=== PATIENT | female | born 1945 | race Caucasian/White ===

== ENCOUNTER 2017-11-29 15:28 | Inpatient (IN) | payer MEDICARE, MEDICAID ==
[~2017-11-29 15:28] MED LIST: ETOMIDATE 20 MG INJ; SUCCINYLCHOLINE CHLORIDE 100 MG/5 ML SYG IV
[2017-11-29] MEDS: IPRATROPIUM (NEB) 0.5 MG/2.5 ML AMP INH (16:05)
[2017-11-29] MEDS: ALBUTEROL 0.5% (NEB) 2.5 MG/0.5 ML AMP INH (16:05)
[2017-11-29 16:28] LABS: AADO2 Arterial 416.1 mmHg (7.0-24.0); Allen Test ACCEPTAB; Arterial Base Excess -3.5 mmol/L (-3.0-3); Arterial COHb 2.1 % (0.0-3.0); Arterial Fraction of Oxyhgb 96.7 % (93.0-99.0); Arterial HCO3 28.6 mmol/L (22.0-26.0); Arterial MetHb 0.2 % (0.0-1.5); Arterial Total Hemglobin 14.1 g/dl (12.0-18.0); Arterial pCO2 92.6 mmhg (35-45); MODE MASK - NRB; Site Right Radial
[2017-11-29 16:34] LABS: ADD MAN DIFF? NO
[2017-11-29 16:38] LABS: WHITE BLOOD COUNT 13.5 10^3/ul (4.8-10.8)
[2017-11-29 16:38] LABS: BASOPHILS % 0.3 % (0.0-2.0); HEMOGLOBIN 12.8 g/dl (12.0-16.0); LYMPHOCYTES # 0.9 10^3/ul (0.8-2.9); LYMPHOCYTES % 6.4 % (15.0-51.0); MEAN CORPUSCULAR HGB CONC 30.5 g/dl (32.0-37.0); MEAN CORPUSCULAR VOLUME 101.7 fl (82.0-101.0); MEAN PLATELET VOLUME 11.2 fl (7.4-10.4); MONOCYTE # 0.4 10^3/ul (0.3-0.9); MONOCYTES % 3.3 % (0.0-11.0); NEUTROPHIL # 11.9 10^3/ul (1.6-7.5); NEUTROPHILS % 87.9 % (39.0-77.0); NUCLEATED RED BLOOD CELLS # 0.2 10^3/ul (0.0-0.0); NUCLEATED RED BLOOD CELLS% 1.3 /100WBC (0.0-0.0); PLATELET COUNT 235 10^3/UL (140-415); RED BLOOD COUNT 4.13 10^6/ul (4.20-5.40); RED CELL DISTRIBUTION WIDTH 16.6 % (11.5-14.5)
[2017-11-29] MEDS ORDERED: PROPOFOL 100 ML IV (16:45)
[2017-11-29] MEDS ORDERED: SUCCINYLCHOLINE CHLORIDE 100 MG/5 ML SYG IV (16:45)
[2017-11-29] MEDS ORDERED: ETOMIDATE 20 MG INJ IV (16:45)
[2017-11-29 17:01] LABS: INR 1.46; PT RATIO 1.4
[2017-11-29 17:02] LABS: PARTIAL THROMBOPLASTIN TIME 32.5 Sec (25.0-35.0)
[2017-11-29 17:06] LABS: ALBUMIN 3.9 g/dl (3.3-4.9); ALBUMIN/GLOBULIN RATIO 0.95; ALKALINE PHOSPHATASE 160 IU/L (42-121); AMYLASE 48 U/L (11-123); ANION GAP 19 (8-16); BILIRUBIN,INDIRECT 0.1 mg/dl (0-1.1); BILIRUBIN,TOTAL 0.1 mg/dl (0.2-1.3); BLOOD UREA NITROGEN 69 mg/dl (7-20); CALCIUM 8.9 mg/dl (8.4-10.2); CARBON DIOXIDE 28 mmol/L (21-31); CHLORIDE 99 mmol/L (97-110); CREATINE KINASE 541 IU/L (23-200); CREATININE 2.23 mg/dl (0.44-1.00); GLUCOSE 143 mg/dl (70-220); LIPASE 84 U/L (23-300); POTASSIUM 5.7 mmol/L (3.5-5.1); SODIUM 140 mmol/L (135-144)
[2017-11-29 17:18] LABS: B-TYPE NATRIURETIC PEPTIDE 33300 PG/ML (0-125); CK INDEX 1.7; CK-MB 9.32 ng/ml (0.0-2.4)
[2017-11-29] MEDS ORDERED: SODIUM CHLORIDE 0.9% 1L BAG IV* (17:33)
[2017-11-29 17:46] LABS: ALANINE AMINOTRANSFERASE 1065 IU/L (13-69)
[2017-11-29 17:47] LABS: TROPONIN-I 0.136 ng/ml (0.00-0.12)
[2017-11-29] MEDS ORDERED: ACETAMINOPHEN 325 MG TAB PO (18:00)
[2017-11-29] MEDS: LEVOFLOXACIN 750MG/D5W (PMX) 150 ML IVPB (18:00)
[2017-11-29] MEDS ORDERED: ONDANSETRON 4 MG INJ IV (18:00)
[2017-11-29 18:06] LABS: Allen Test ACCEPTAB; Arterial Base Excess -1.6 mmol/L (-3.0-3); Arterial Blood Gas Oxygen Sat 83.8 mmHG (95.0-98.0); Arterial COHb 1.9 % (0.0-3.0); Arterial HCO3 29.6 mmol/L (22.0-26.0); Arterial MetHb 0.3 % (0.0-1.5); Arterial Total Hemglobin 13.8 g/dl (12.0-18.0); Arterial pCO2 86.6 mmhg (35-45); Blood Gas IEPAP 15/5; Blood Gas PS 10; MODE MASK - BIPAP; Site Right Radial
[2017-11-29 18:09] LABS: ASPARTATE AMINO TRANSFERASE > 7500 IU/L (15-46)
[2017-11-29] MEDS: METHYLPREDNISOLONE 125 MG INJ IV (18:12)
[2017-11-29] MEDS ORDERED: NACL 0.9% 3 ML SYG IV (18:30)
[2017-11-29] MEDS ORDERED: DOCUSATE SODIUM 100 MG CAP PO (18:30)
[2017-11-29] MEDS ORDERED: ALBUTEROL 0.083% (NEB) 2.5 MG/3 ML AMP NEB (18:30)
[2017-11-29] MEDS ORDERED: NITROGLYCERIN (SL) 0.4 MG TAB SL (18:30)
[2017-11-29] MEDS ORDERED: MAGNESIUM HYDROXIDE 30ML CUP PO (18:30)
[2017-11-29] MEDS ORDERED: PROPOFOL 100 ML (18:41)
[2017-11-29] MEDS: PROPOFOL 100 ML IV (20:00)
[2017-11-29 20:11] LABS: AADO2 Arterial 162.6 mmHg (7.0-24.0); Allen Test ACCEPTAB; Arterial Base Excess -0.9 mmol/L (-3.0-3); Arterial Blood Gas Oxygen Sat 78.8 mmHG (95.0-98.0); Arterial COHb 1.2 % (0.0-3.0); Arterial Fraction of Oxyhgb 77.7 % (93.0-99.0); Arterial HCO3 27.7 mmol/L (22.0-26.0); Arterial MetHb 0.2 % (0.0-1.5); Arterial Total Hemglobin 13.1 g/dl (12.0-18.0); Arterial pCO2 64.7 mmhg (35-45); MODE VENT - AC; Site Right Radial
[2017-11-29] MEDS: VANCOMYCIN 1 GM (PMX) 250 ML IVPB (20:41)
[2017-11-29 20:54] LABS: ADD UMIC YES; UR AMORPHOUS CRYSTAL FEW /HPF (NONE SEEN); UR ASCORBIC ACID NEGATIVE (NEGATIVE); UR BACTERIA FEW /HPF (NONE SEEN); UR BILIRUBIN (Dip) NEGATIVE (NEGATIVE); UR BLOOD (Dip) 2+ mg/dL (NEGATIVE); UR CLARITY SLIGHTLY CLOUDY (CLEAR); UR COLOR YELLOW (YELLOW); UR GLUCOSE (Dip) NEGATIVE (NEGATIVE); UR HYALINE CAST FEW /HPF (NONE SEEN); UR KETONES (Dip) NEGATIVE (NEGATIVE); UR LEUKOCYTE ESTERASE (Dip) NEGATIVE Leu/ul (NEGATIVE); UR MUCUS FEW /HPF (NONE SEEN); UR NITRITE (Dip) NEGATIVE (NEGATIVE); UR RBC 26 /HPF (0-5); UR SPECIFIC GRAVITY (Dip) 1.013 (1.003-1.030); UR SQUAMOUS EPITHELIAL CELL FEW /HPF (FEW); UR TOTAL PROTEIN (Dip) 2+ mg/dl (NEGATIVE); UR UROBILINOGEN (Dip) 2+ mg/dL (NEGATIVE); UR WBC 1 /HPF (0-5)
[2017-11-29] MEDS: HEPARIN 5,000 UNIT/0.5 ML VIAL SC (21:26)
[2017-11-30] MEDS: METHYLPREDNISOLONE 125 MG INJ IV ×5 (00:36→23:10)
[2017-11-30 00:55] LABS: CREATINE KINASE 486 IU/L (23-200)
[2017-11-30 01:06] LABS: CK INDEX 1.8; CK-MB 8.73 ng/ml (0.0-2.4)
[2017-11-30 01:10] LABS: LACTIC ACID 1.4 mmol/L (0.5-2.0)
[2017-11-30 01:21] LABS: TROPONIN-I 0.143 ng/ml (0.00-0.12)
[2017-11-30] MEDS: PANTOPRAZOLE (EC) 40 MG TAB PO (05:35)
[2017-11-30] MEDS: FUROSEMIDE 40 MG INJ IV ×2 (05:39→18:14)
[2017-11-30 06:10] LABS: WHITE BLOOD COUNT 11.2 10^3/ul (4.8-10.8)
[2017-11-30 06:10] LABS: ABNORMAL IP MESSAGE 1; HEMATOCRIT 38.1 % (37.0-47.0); HEMOGLOBIN 12.5 g/dl (12.0-16.0); MEAN CORPUSCULAR HEMOGLOBIN 31.7 pg (29.0-33.0); MEAN CORPUSCULAR HGB CONC 32.8 g/dl (32.0-37.0); MEAN CORPUSCULAR VOLUME 96.7 fl (82.0-101.0); MEAN PLATELET VOLUME 11.2 fl (7.4-10.4); NUCLEATED RED BLOOD CELLS% 1.3 /100WBC (0.0-0.0); PLATELET COUNT 200 10^3/UL (140-415); RED BLOOD COUNT 3.94 10^6/ul (4.20-5.40); RED CELL DISTRIBUTION WIDTH 16.3 % (11.5-14.5)
[2017-11-30 06:13] LABS: POSITIVE DIFF @See below
[2017-11-30 06:14] LABS: ADD MAN DIFF? YES
[2017-11-30 06:31] LABS: AADO2 Arterial 250.5 mmHg (7.0-24.0); Allen Test ACCEPTAB; Arterial Base Excess 3.2 mmol/L (-3.0-3); Arterial Blood Gas Oxygen Sat 99.6 mmHG (95.0-98.0); Arterial COHb 0 % (0.0-3.0); Arterial Fraction of Oxyhgb 99.3 % (93.0-99.0); Arterial HCO3 28.5 mmol/L (22.0-26.0); Arterial MetHb 0.3 % (0.0-1.5); Arterial Total Hemglobin 13.6 g/dl (12.0-18.0); Arterial pCO2 46.1 mmhg (35-45); MODE VENT - AC; Site Right Radial
[2017-11-30 06:38] LABS: ALBUMIN 3.3 g/dl (3.3-4.9); ALBUMIN/GLOBULIN RATIO 0.91; ALKALINE PHOSPHATASE 147 IU/L (42-121); ANION GAP 17 (8-16); BILIRUBIN,INDIRECT 0.1 mg/dl (0-1.1); BILIRUBIN,TOTAL 0.1 mg/dl (0.2-1.3); BLOOD UREA NITROGEN 69 mg/dl (7-20); CALCIUM 8.7 mg/dl (8.4-10.2); CARBON DIOXIDE 31 mmol/L (21-31); CHLORIDE 100 mmol/L (97-110); CREATINE KINASE 433 IU/L (23-200); CREATININE 1.82 mg/dl (0.44-1.00); GLUCOSE 113 mg/dl (70-220); MAGNESIUM 2.1 mg/dl (1.7-2.5); POTASSIUM 5.1 mmol/L (3.5-5.1); SODIUM 143 mmol/L (135-144); TOTAL PROTEIN 6.9 g/dl (6.1-8.1)
[2017-11-30 06:39] LABS: LACTIC ACID 1.4 mmol/L (0.5-2.0)
[2017-11-30 06:50] LABS: CK INDEX 1.7; CK-MB 7.55 ng/ml (0.0-2.4); TROPONIN-I 0.117 ng/ml (0.00-0.12)
[2017-11-30 07:06] LABS: ALANINE AMINOTRANSFERASE 1167 IU/L (13-69)
[2017-11-30 07:14] LABS: BAND NEUTROPHILS #M 1.5 10^3/ul (0.0-0.6); BAND NEUTROPHILS % (M) 14 % (0-4); ERYTHROBLAST% (NRBC) (M) 3 % (0-0); LYMPHOCYTES #M 0.2 10^3/ul (0.8-2.9); LYMPHOCYTES % (M) 2 % (15-51); MONOCYTE #M 0.1 10^3/ul (0.3-0.9); MONOCYTES % (M) 1 % (0-11); PLATELET ESTIMATE NORMAL; POLYCHROMASIA 1+ (0-0); SEG NEUT #M 9.5 10^3/ul (1.7-7.5); SEGMENTED NEUTROPHILS (M) % 83 % (39-77)
[2017-11-30 08:02] LABS: ASPARTATE AMINO TRANSFERASE 2187 IU/L (15-46)
[2017-11-30] MEDS ORDERED: ENOXAPARIN 30 MG/0.3 ML SYG SC (09:00)
[2017-11-30] MEDS: ASPIRIN 81 MG TAB PO (09:11)
[2017-11-30] MEDS: HEPARIN 5,000 UNIT/0.5 ML VIAL SC ×2 (09:14→21:43)
[2017-11-30 13:53] LABS: LACTIC ACID 1.1 mmol/L (0.5-2.0)
[2017-11-30 14:11] LABS: CK-MB 4.45 ng/ml (0.0-2.4); TROPONIN-I 0.066 ng/ml (0.00-0.12)
[2017-11-30 15:12] LABS: CK INDEX 1.4
[2017-11-30 15:24] LABS: CREATINE KINASE 318 IU/L (23-200)
[2017-12-01 00:24] LABS: HEMATOCRIT 37.5 % (37.0-47.0); HEMOGLOBIN 12.5 g/dl (12.0-16.0)
[2017-12-01] MEDS: FUROSEMIDE 40 MG INJ IV ×2 (05:44→21:22)
[2017-12-01] MEDS: METHYLPREDNISOLONE 125 MG INJ IV ×3 (05:44→19:31)
[2017-12-01] MEDS: PANTOPRAZOLE (EC) 40 MG TAB PO (06:00)
[2017-12-01 06:10] LABS: ADD MAN DIFF? NO
[2017-12-01 06:29] LABS: WHITE BLOOD COUNT 7.9 10^3/ul (4.8-10.8)
[2017-12-01 06:30] LABS: ABNORMAL IP MESSAGE 1; BASOPHILS % 0.1 % (0.0-2.0); HEMATOCRIT 37.5 % (37.0-47.0); HEMOGLOBIN 12.7 g/dl (12.0-16.0); LYMPHOCYTES # 0.4 10^3/ul (0.8-2.9); MEAN CORPUSCULAR HEMOGLOBIN 31.8 pg (29.0-33.0); MEAN CORPUSCULAR HGB CONC 33.9 g/dl (32.0-37.0); MEAN CORPUSCULAR VOLUME 93.8 fl (82.0-101.0); MEAN PLATELET VOLUME 11.8 fl (7.4-10.4); MONOCYTE # 0.1 10^3/ul (0.3-0.9); MONOCYTES % 1.8 % (0.0-11.0); NEUTROPHIL # 7.2 10^3/ul (1.6-7.5); NEUTROPHILS % 91.7 % (39.0-77.0); NUCLEATED RED BLOOD CELLS # 0.1 10^3/ul (0.0-0.0); NUCLEATED RED BLOOD CELLS% 1.1 /100WBC (0.0-0.0); PLATELET COUNT 209 10^3/UL (140-415); RED CELL DISTRIBUTION WIDTH 15.9 % (11.5-14.5)
[2017-12-01 06:36] LABS: POSITIVE DIFF @See below
[2017-12-01 07:09] LABS: ALANINE AMINOTRANSFERASE 821 IU/L (13-69); ALBUMIN 3.1 g/dl (3.3-4.9); ALBUMIN/GLOBULIN RATIO 0.72; ALKALINE PHOSPHATASE 133 IU/L (42-121); ANION GAP 18 (8-16); BILIRUBIN,INDIRECT 0.1 mg/dl (0-1.1); BILIRUBIN,TOTAL 0.1 mg/dl (0.2-1.3); BLOOD UREA NITROGEN 75 mg/dl (7-20); CALCIUM 8.8 mg/dl (8.4-10.2); CARBON DIOXIDE 35 mmol/L (21-31); CHLORIDE 100 mmol/L (97-110); CREATININE 1.55 mg/dl (0.44-1.00); GLUCOSE 131 mg/dl (70-220); POTASSIUM 3.2 mmol/L (3.5-5.1); SODIUM 150 mmol/L (135-144); TOTAL PROTEIN 7.4 g/dl (6.1-8.1)
[2017-12-01 07:18] LABS: ASPARTATE AMINO TRANSFERASE 895 IU/L (15-46)
[2017-12-01] MEDS: ASPIRIN 81 MG TAB PO (08:33)
[2017-12-01] MEDS: HEPARIN 5,000 UNIT/0.5 ML VIAL SC (10:23)
[2017-12-01 12:48] LABS: HEMATOCRIT 38.4 % (37.0-47.0); HEMOGLOBIN 13.3 g/dl (12.0-16.0)
[2017-12-01] MEDS ORDERED: ALBUTEROL/IPRATROPIUM (NEB) 3 ML AMP HHN (17:00)
[2017-12-01] MEDS ORDERED: LEVOFLOXACIN 250MG/D5W (PMX) 50 ML IVPB (17:00)
[2017-12-01] MEDS ORDERED: VANCOMYCIN IV PER PHARMACY XX (17:30)
[2017-12-01] MEDS: DEXTROSE 5% 1,000 ML IV (19:31)
[2017-12-01] MEDS: VANCOMYCIN 1 GM in SODIUM CHLORIDE 0.45 % 250 ML IVPB (20:00)
[2017-12-01 20:21] LABS: HEMATOCRIT 39.3 % (37.0-47.0); HEMOGLOBIN 13.2 g/dl (12.0-16.0)
[2017-12-01] MEDS ORDERED: VANCOMYCIN 1 GM (PMX) 250 ML (21:00)
[2017-12-01] MEDS: POTASSIUM CHLORIDE 20 MEQ in DEXTROSE 5% 100 ML IVPB (21:02)
[2017-12-01] MEDS: PROPOFOL 100 ML IV (21:41)
[2017-12-01] MEDS: ALBUTEROL HFA 8 GM INHALER INH (21:48)
[2017-12-01] MEDS: IPRATROPIUM (HFA) 12.9 GM INHALER INH (21:48)
[2017-12-01] MEDS: AZTREONAM 1 GM/NS (PMX) 50 ML IVPB (23:19)
[2017-12-02] MEDS ORDERED: PENDING SANTYL ORDER FOR WOUND CARE XX
[2017-12-02] MEDS: METHYLPREDNISOLONE 125 MG INJ IV ×4 (00:28→18:22)
[2017-12-02 01:22] LABS: POTASSIUM 3.4 mmol/L (3.5-5.1)
[2017-12-02] MEDS: ALBUTEROL HFA 8 GM INHALER INH ×6 (01:44→20:00)
[2017-12-02] MEDS: IPRATROPIUM (HFA) 12.9 GM INHALER INH ×6 (01:44→20:00)
[2017-12-02] MEDS: PANTOPRAZOLE IV 80 MG in SOD CHLORIDE 0.9% 100 ML IV ×3 (02:37→20:40)
[2017-12-02] MEDS: POTASSIUM CHLORIDE 40 MEQ in DEXTROSE 5% 250 ML IVPB (02:37)
[2017-12-02] MEDS: PROPOFOL 100 ML IV ×2 (04:13→10:16)
[2017-12-02] MEDS: DEXTROSE 5% 1,000 ML IV ×3 (05:35→21:00)
[2017-12-02] MEDS: FUROSEMIDE 40 MG INJ IV (05:35)
[2017-12-02 06:04] LABS: ADD MAN DIFF? NO
[2017-12-02 06:43] LABS: ALANINE AMINOTRANSFERASE 611 IU/L (13-69); ALBUMIN 3.3 g/dl (3.3-4.9); ALBUMIN/GLOBULIN RATIO 0.86; ALKALINE PHOSPHATASE 130 IU/L (42-121); ANION GAP 19 (8-16); ASPARTATE AMINO TRANSFERASE 417 IU/L (15-46); BILIRUBIN,INDIRECT 0.3 mg/dl (0-1.1); BILIRUBIN,TOTAL 0.3 mg/dl (0.2-1.3); BLOOD UREA NITROGEN 82 mg/dl (7-20); CALCIUM 8.4 mg/dl (8.4-10.2); CARBON DIOXIDE 39 mmol/L (21-31); CHLORIDE 100 mmol/L (97-110); CREATININE 1.66 mg/dl (0.44-1.00); GLUCOSE 201 mg/dl (70-220); MAGNESIUM 2.1 mg/dl (1.7-2.5); POTASSIUM 3.7 mmol/L (3.5-5.1); SODIUM 154 mmol/L (135-144); TOTAL PROTEIN 7.1 g/dl (6.1-8.1)
[2017-12-02 07:00] LABS: ABNORMAL IP MESSAGE 1; BASOPHILS % 0.1 % (0.0-2.0); HEMATOCRIT 38.3 % (37.0-47.0); LYMPHOCYTES # 0.5 10^3/ul (0.8-2.9); LYMPHOCYTES % 4.6 % (15.0-51.0); MEAN CORPUSCULAR HGB CONC 33.9 g/dl (32.0-37.0); MEAN CORPUSCULAR VOLUME 94.3 fl (82.0-101.0); MEAN PLATELET VOLUME 11.2 fl (7.4-10.4); MONOCYTE # 0.3 10^3/ul (0.3-0.9); MONOCYTES % 2.3 % (0.0-11.0); NEUTROPHIL # 9.8 10^3/ul (1.6-7.5); NEUTROPHILS % 92.2 % (39.0-77.0); NUCLEATED RED BLOOD CELLS% 0.3 /100WBC (0.0-0.0); PLATELET COUNT 200 10^3/UL (140-415); RED BLOOD COUNT 4.06 10^6/ul (4.20-5.40); RED CELL DISTRIBUTION WIDTH 16.7 % (11.5-14.5)
[2017-12-02 07:00] LABS: WHITE BLOOD COUNT 10.7 10^3/ul (4.8-10.8)
[2017-12-02 08:20] LABS: AADO2 Arterial 103.8 mmHg (7.0-24.0); Allen Test ACCEPTAB; Arterial Base Excess 13.2 mmol/L (-3.0-3); Arterial COHb 0.4 % (0.0-3.0); Arterial Fraction of Oxyhgb 92.3 % (93.0-99.0); Arterial HCO3 36.2 mmol/L (22.0-26.0); Arterial MetHb 0.3 % (0.0-1.5); Arterial Total Hemglobin 14.3 g/dl (12.0-18.0); Arterial pCO2 39.2 mmhg (35-45); MODE VENT - AC; Site Right Radial
[2017-12-02] MEDS: AZTREONAM 1 GM/NS (PMX) 50 ML IVPB ×2 (09:25→20:39)
[2017-12-02] MEDS: ASPIRIN 81 MG TAB PO (09:26)
[2017-12-02 14:18] LABS: HAAIG REFLEX REFLEX FILED
[2017-12-02 14:52] LABS: ANION GAP 16 (8-16); BLOOD UREA NITROGEN 78 mg/dl (7-20); CALCIUM 8.4 mg/dl (8.4-10.2); CARBON DIOXIDE 39 mmol/L (21-31); CHLORIDE 98 mmol/L (97-110); CREATININE 1.57 mg/dl (0.44-1.00); GLUCOSE 163 mg/dl (70-220); SODIUM 150 mmol/L (135-144)
[2017-12-02 15:16] LABS: HEPATITIS B SURFACE ANTIGEN NEGATIVE (NEGATIVE)
[2017-12-02 15:34] LABS: HEPATITIS B CORE ANTIBODY NEGATIVE (NEGATIVE); HEPATITIS C VIRAL ANTIBODY NEGATIVE (NEGATIVE)
[2017-12-02 15:35] LABS: HEPATITIS B SURFACE ANTIBODY NEGATIVE (NEGATIVE)
[2017-12-02] MEDS ORDERED: POTASSIUM CHLORIDE 30 MEQ in DEXTROSE 5% 250 ML IVPB (22:00)
[2017-12-02] MEDS ORDERED: POTASSIUM CHLORIDE 30 MEQ in SOD CHLORIDE 0.9% 150 ML IVPB (22:00)
[2017-12-02] MEDS: POTASSIUM CHLORIDE 50 ML IVPB ×2 (22:03→23:09)
[2017-12-03] MEDS: METHYLPREDNISOLONE 125 MG INJ IV ×4 (00:16→18:10)
[2017-12-03] MEDS: POTASSIUM CHLORIDE 50 ML IVPB (00:17)
[2017-12-03] MEDS: IPRATROPIUM (HFA) 12.9 GM INHALER INH ×5 (01:25→17:00)
[2017-12-03] MEDS: ALBUTEROL HFA 8 GM INHALER INH ×5 (01:25→17:00)
[2017-12-03] MEDS: PROPOFOL 100 ML IV (02:45)
[2017-12-03 05:17] LABS: ADD MAN DIFF? NO
[2017-12-03 05:24] LABS: WHITE BLOOD COUNT 9.3 10^3/ul (4.8-10.8)
[2017-12-03 05:24] LABS: ABNORMAL IP MESSAGE 1; BASOPHILS % 0.1 % (0.0-2.0); HEMATOCRIT 36.9 % (37.0-47.0); HEMOGLOBIN 12.4 g/dl (12.0-16.0); LYMPHOCYTES # 0.3 10^3/ul (0.8-2.9); LYMPHOCYTES % 3.6 % (15.0-51.0); MEAN CORPUSCULAR HEMOGLOBIN 32.4 pg (29.0-33.0); MEAN CORPUSCULAR HGB CONC 33.6 g/dl (32.0-37.0); MEAN CORPUSCULAR VOLUME 96.3 fl (82.0-101.0); MEAN PLATELET VOLUME 11.5 fl (7.4-10.4); MONOCYTE # 0.2 10^3/ul (0.3-0.9); MONOCYTES % 1.7 % (0.0-11.0); NEUTROPHIL # 8.7 10^3/ul (1.6-7.5); NEUTROPHILS % 94.2 % (39.0-77.0); NUCLEATED RED BLOOD CELLS% 0.2 /100WBC (0.0-0.0); PLATELET COUNT 177 10^3/UL (140-415); RED BLOOD COUNT 3.83 10^6/ul (4.20-5.40); RED CELL DISTRIBUTION WIDTH 16.9 % (11.5-14.5)
[2017-12-03 05:34] LABS: POSITIVE DIFF @See below
[2017-12-03 06:15] LABS: ANION GAP 18 (8-16); BLOOD UREA NITROGEN 70 mg/dl (7-20); CALCIUM 8.1 mg/dl (8.4-10.2); CARBON DIOXIDE 34 mmol/L (21-31); CHLORIDE 98 mmol/L (97-110); CREATININE 1.26 mg/dl (0.44-1.00); GLUCOSE 159 mg/dl (70-220); PHOSPHORUS 4.9 mg/dl (2.5-4.9); POTASSIUM 3.7 mmol/L (3.5-5.1); SODIUM 146 mmol/L (135-144)
[2017-12-03] MEDS: PANTOPRAZOLE IV 80 MG in SOD CHLORIDE 0.9% 100 ML IV ×2 (06:17→18:35)
[2017-12-03] MEDS: ASPIRIN 81 MG TAB PO (08:56)
[2017-12-03] MEDS: DEXTROSE 5% 1,000 ML IV (09:00)
[2017-12-03] MEDS: AZTREONAM 1 GM/NS (PMX) 50 ML IVPB ×2 (09:00→20:47)
[2017-12-03 13:27] LABS: MITOCHONDRIAL TB NEGATIVE (NEGATIVE); SMOOTH MUSCLE AB SCREEN POSITIVE (NEGATIVE)
[2017-12-03 13:54] LABS: AADO2 Arterial 89.9 mmHg (7.0-24.0); Allen Test ACCEPTAB; Arterial Base Excess 10.4 mmol/L (-3.0-3); Arterial Blood Gas Oxygen Sat 94.1 mmHG (95.0-98.0); Arterial COHb 0.5 % (0.0-3.0); Arterial Fraction of Oxyhgb 93.4 % (93.0-99.0); Arterial HCO3 35.1 mmol/L (22.0-26.0); Arterial MetHb 0.2 % (0.0-1.5); Arterial Total Hemglobin 15.5 g/dl (12.0-18.0); Arterial pCO2 46.1 mmhg (35-45); Blood Gas PS 12; MODE VENT - CPAP; Site Right Radial
[2017-12-03] MEDS: VANCOMYCIN 750 MG in DEXTROSE 5% 150 ML IVPB (16:30)
[2017-12-03 19:23] LABS: ANA SCREEN POSITIVE (NEGATIVE)
[2017-12-03 20:06] LABS: ANA PATTERN HOMOGENEOUS
[2017-12-03] MEDS: VANCOMYCIN 1 GM 250 ML IVPB (20:47)
[2017-12-03] MEDS: HEPARIN 5,000 UNIT/0.5 ML VIAL SC (20:48)
[2017-12-03] MEDS: morphine 2 MG INJ IV (22:16)
[2017-12-03] MEDS: hydrALAzine 20 MG INJ IV (22:16)
[2017-12-04] MEDS: METHYLPREDNISOLONE 125 MG INJ IV ×4 (00:43→17:52)
[2017-12-04] MEDS: ALBUTEROL/IPRATROPIUM (NEB) 3 ML AMP HHN ×6 (01:34→22:19)
[2017-12-04] MEDS: PANTOPRAZOLE IV 80 MG in SOD CHLORIDE 0.9% 100 ML IV ×2 (03:58→14:08)
[2017-12-04 05:31] LABS: ADD MAN DIFF? NO
[2017-12-04 05:49] LABS: ABNORMAL IP MESSAGE 1; BASOPHILS % 0.1 % (0.0-2.0); HEMATOCRIT 41.2 % (37.0-47.0); LYMPHOCYTES # 0.2 10^3/ul (0.8-2.9); LYMPHOCYTES % 2.5 % (15.0-51.0); MEAN CORPUSCULAR HEMOGLOBIN 32.3 pg (29.0-33.0); MEAN CORPUSCULAR VOLUME 94.9 fl (82.0-101.0); MEAN PLATELET VOLUME 11.6 fl (7.4-10.4); MONOCYTE # 0.2 10^3/ul (0.3-0.9); MONOCYTES % 2.6 % (0.0-11.0); NEUTROPHIL # 8.7 10^3/ul (1.6-7.5); NEUTROPHILS % 94.2 % (39.0-77.0); PLATELET COUNT 168 10^3/UL (140-415); RED BLOOD COUNT 4.34 10^6/ul (4.20-5.40); RED CELL DISTRIBUTION WIDTH 16.4 % (11.5-14.5)
[2017-12-04 05:49] LABS: WHITE BLOOD COUNT 9.2 10^3/ul (4.8-10.8)
[2017-12-04 06:01] LABS: ALANINE AMINOTRANSFERASE 316 IU/L (13-69); ALBUMIN 3.2 g/dl (3.3-4.9); ALKALINE PHOSPHATASE 92 IU/L (42-121); ASPARTATE AMINO TRANSFERASE 81 IU/L (15-46); BILIRUBIN,INDIRECT 0.5 mg/dl (0-1.1); BILIRUBIN,TOTAL 0.5 mg/dl (0.2-1.3); TOTAL PROTEIN 6.6 g/dl (6.1-8.1)
[2017-12-04 06:11] LABS: ANION GAP 14 (8-16); BLOOD UREA NITROGEN 49 mg/dl (7-20); CALCIUM 8.4 mg/dl (8.4-10.2); CARBON DIOXIDE 36 mmol/L (21-31); CHLORIDE 99 mmol/L (97-110); CREATININE 0.89 mg/dl (0.44-1.00); GLUCOSE 125 mg/dl (70-220); MAGNESIUM 2.1 mg/dl (1.7-2.5); PHOSPHORUS 3.9 mg/dl (2.5-4.9); SODIUM 146 mmol/L (135-144)
[2017-12-04 06:13] LABS: POTASSIUM 2.9 mmol/L (3.5-5.1)
[2017-12-04 06:16] LABS: POSITIVE DIFF @See below
[2017-12-04] MEDS ORDERED: POTASSIUM CHLORIDE 40 MEQ in DEXTROSE 5% 250 ML IVPB (08:00)
[2017-12-04] MEDS: DEXTROSE 5% 1,000 ML IV ×2 (08:19→14:09)
[2017-12-04] MEDS: AZTREONAM 1 GM/NS (PMX) 50 ML IVPB ×3 (08:54→22:11)
[2017-12-04] MEDS: ASPIRIN 81 MG TAB PO (08:54)
[2017-12-04] MEDS: BALSAM PERU/CASTOR OIL 60 GM TUBE TOP (08:55)
[2017-12-04] MEDS: POTASSIUM CHLORIDE 50 ML IVPB ×4 (08:55→12:02)
[2017-12-04] MEDS: HEPARIN 5,000 UNIT/0.5 ML VIAL SC ×2 (09:00→20:47)
[2017-12-04] MEDS: morphine 2 MG INJ IV ×2 (09:44→15:03)
[2017-12-04 15:19] LABS: ANION GAP 17 (8-16); BLOOD UREA NITROGEN 47 mg/dl (7-20); CALCIUM 8.3 mg/dl (8.4-10.2); CARBON DIOXIDE 32 mmol/L (21-31); CHLORIDE 100 mmol/L (97-110); CREATININE 0.87 mg/dl (0.44-1.00); GLUCOSE 124 mg/dl (70-220); POTASSIUM 4.2 mmol/L (3.5-5.1); SODIUM 145 mmol/L (135-144)
[2017-12-04] MEDS: VANCOMYCIN 1 GM (PMX) 250 ML IVPB (20:57)
[2017-12-05] MEDS: METHYLPREDNISOLONE 125 MG INJ IV ×4 (00:02→17:25)
[2017-12-05] MEDS: ALBUTEROL/IPRATROPIUM (NEB) 3 ML AMP HHN ×6 (00:58→20:37)
[2017-12-05] MEDS: DEXTROSE 5% 1,000 ML IV (02:07)
[2017-12-05] MEDS: AZTREONAM 1 GM/NS (PMX) 50 ML IVPB ×3 (05:29→21:21)
[2017-12-05] MEDS: morphine 2 MG INJ IV (06:14)
[2017-12-05 08:17] LABS: ADD MAN DIFF? NO
[2017-12-05 08:19] LABS: WHITE BLOOD COUNT 7.3 10^3/ul (4.8-10.8)
[2017-12-05 08:19] LABS: ABNORMAL IP MESSAGE 1; BASOPHILS % 0.1 % (0.0-2.0); HEMATOCRIT 36.2 % (37.0-47.0); HEMOGLOBIN 11.8 g/dl (12.0-16.0); LYMPHOCYTES # 0.1 10^3/ul (0.8-2.9); LYMPHOCYTES % 1.8 % (15.0-51.0); MEAN CORPUSCULAR HEMOGLOBIN 31.7 pg (29.0-33.0); MEAN CORPUSCULAR HGB CONC 32.6 g/dl (32.0-37.0); MEAN CORPUSCULAR VOLUME 97.3 fl (82.0-101.0); MEAN PLATELET VOLUME 11.6 fl (7.4-10.4); MONOCYTE # 0.1 10^3/ul (0.3-0.9); MONOCYTES % 1.8 % (0.0-11.0); NEUTROPHIL # 6.9 10^3/ul (1.6-7.5); NEUTROPHILS % 95.6 % (39.0-77.0); PLATELET COUNT 125 10^3/UL (140-415); RED BLOOD COUNT 3.72 10^6/ul (4.20-5.40); RED CELL DISTRIBUTION WIDTH 16.4 % (11.5-14.5)
[2017-12-05 08:20] LABS: POSITIVE DIFF @See below
[2017-12-05 08:57] LABS: ANION GAP 15 (8-16); BLOOD UREA NITROGEN 42 mg/dl (7-20); CARBON DIOXIDE 28 mmol/L (21-31); CHLORIDE 101 mmol/L (97-110); CREATININE 0.79 mg/dl (0.44-1.00); GLUCOSE 137 mg/dl (70-220); MAGNESIUM 2.2 mg/dl (1.7-2.5); PHOSPHORUS 3.3 mg/dl (2.5-4.9); POTASSIUM 3.8 mmol/L (3.5-5.1); SODIUM 140 mmol/L (135-144)
[2017-12-05] MEDS: ASPIRIN 81 MG TAB PO (09:23)
[2017-12-05] MEDS: HEPARIN 5,000 UNIT/0.5 ML VIAL SC (09:26)
[2017-12-05] MEDS: PANTOPRAZOLE IV 80 MG in SOD CHLORIDE 0.9% 100 ML IV ×3 (09:32→17:38)
[2017-12-05] MEDS ORDERED: METOPROLOL 5 MG INJ (13:32)
[2017-12-05] MEDS: METOPROLOL 5 MG INJ IV (13:38)
[2017-12-05] MEDS: BALSAM PERU/CASTOR OIL 60 GM TUBE TOP (14:53)
[2017-12-05] MEDS: DILTIAZEM 30 MG TAB PO ×3 (17:00→21:22)
[2017-12-05] MEDS: DIGOXIN 500 MCG INJ IV ×2 (17:26→21:49)
[2017-12-05 17:47] LABS: INR 1.17; PROTIME 15.1 Sec (11.9-14.9); PT RATIO 1.2
[2017-12-05 17:50] LABS: TROPONIN-I 0.061 ng/ml (0.00-0.12)
[2017-12-05 18:10] LABS: THYROID STIMULATING HORMONE 0.989 MIU/L (0.465-4.680)
[2017-12-05] MEDS: ENOXAPARIN 40 MG/0.4 ML SYG SC (20:23)
[2017-12-05 20:33] LABS: VANCOMYCIN,TROUGH 12.9 ug/ml (10.0-20.0)
[2017-12-05] MEDS ORDERED: ENOXAPARIN 40 MG/0.4 ML SYG SC (21:00)
[2017-12-05] MEDS: VANCOMYCIN 1 GM (PMX) 250 ML IVPB (21:44)
[2017-12-05] MEDS: ACETAMINOPHEN 325 MG TAB PO (22:21)
[2017-12-06] MEDS: ALBUTEROL/IPRATROPIUM (NEB) 3 ML AMP HHN ×6 (00:26→20:32)
[2017-12-06] MEDS: METHYLPREDNISOLONE 125 MG INJ IV ×4 (00:28→17:29)
[2017-12-06 01:43] LABS: TROPONIN-I 0.178 ng/ml (0.00-0.12)
[2017-12-06] MEDS: DIGOXIN 500 MCG INJ IV ×2 (03:44)
[2017-12-06] MEDS: PANTOPRAZOLE IV 80 MG in SOD CHLORIDE 0.9% 100 ML IV ×2 (03:44→15:45)
[2017-12-06] MEDS: AZTREONAM 1 GM/NS (PMX) 50 ML IVPB ×3 (05:12→21:46)
[2017-12-06] MEDS: DILTIAZEM 30 MG TAB PO ×2 (05:12→13:07)
[2017-12-06] MEDS: ASPIRIN 81 MG TAB PO (08:35)
[2017-12-06] MEDS: ENOXAPARIN 40 MG/0.4 ML SYG SC (08:38)
[2017-12-06] MEDS: BALSAM PERU/CASTOR OIL 60 GM TUBE TOP (08:38)
[2017-12-06 09:04] LABS: ADD MAN DIFF? NO
[2017-12-06 09:16] LABS: ABNORMAL IP MESSAGE 1; BASOPHILS % 0.1 % (0.0-2.0); HEMATOCRIT 38.8 % (37.0-47.0); HEMOGLOBIN 12.8 g/dl (12.0-16.0); LYMPHOCYTES # 0.2 10^3/ul (0.8-2.9); LYMPHOCYTES % 1.8 % (15.0-51.0); MEAN CORPUSCULAR HEMOGLOBIN 31.4 pg (29.0-33.0); MEAN CORPUSCULAR VOLUME 95.3 fl (82.0-101.0); MEAN PLATELET VOLUME 11.9 fl (7.4-10.4); MONOCYTE # 0.1 10^3/ul (0.3-0.9); MONOCYTES % 0.5 % (0.0-11.0); NEUTROPHIL # 9.3 10^3/ul (1.6-7.5); PLATELET COUNT 171 10^3/UL (140-415); RED BLOOD COUNT 4.07 10^6/ul (4.20-5.40); RED CELL DISTRIBUTION WIDTH 16.3 % (11.5-14.5)
[2017-12-06 09:16] LABS: WHITE BLOOD COUNT 9.6 10^3/ul (4.8-10.8)
[2017-12-06 09:34] LABS: NEUTROPHILS % 97.1 % (39.0-77.0); POSITIVE DIFF @See below
[2017-12-06 09:51] LABS: ALANINE AMINOTRANSFERASE 160 IU/L (13-69); ALBUMIN 2.9 g/dl (3.3-4.9); ALKALINE PHOSPHATASE 79 IU/L (42-121); ANION GAP 15 (8-16); ASPARTATE AMINO TRANSFERASE 51 IU/L (15-46); BILIRUBIN,INDIRECT 0.5 mg/dl (0-1.1); BILIRUBIN,TOTAL 0.5 mg/dl (0.2-1.3); BLOOD UREA NITROGEN 39 mg/dl (7-20); CALCIUM 8.2 mg/dl (8.4-10.2); CARBON DIOXIDE 29 mmol/L (21-31); CHLORIDE 102 mmol/L (97-110); CREATININE 0.83 mg/dl (0.44-1.00); GLUCOSE 123 mg/dl (70-220); MAGNESIUM 2.1 mg/dl (1.7-2.5); POTASSIUM 4.2 mmol/L (3.5-5.1); SODIUM 142 mmol/L (135-144); TOTAL PROTEIN 6.1 g/dl (6.1-8.1)
[2017-12-06 09:55] LABS: CHOL/HDL RATIO 2.8 RATIO; HDL CHOLESTEROL 45 mg/dl (33-92); LDL CHOLESTEROL,CALCULATED 69 mg/dl; TRIGLYCERIDES 77 mg/dl (0-149)
[2017-12-06 09:55] LABS: CHOLESTEROL 129 mg/dl (100-200)
[2017-12-06 09:59] LABS: TROPONIN-I 0.242 ng/ml (0.00-0.12)
[2017-12-06 12:50] LABS: IRON 122 ug/dl (35-150)
[2017-12-06 13:00] LABS: % IRON SATURATION 52 % SAT (22-52); TOTAL IRON BINDING CAPACITY 234 ug/dl (241-421)
[2017-12-06] MEDS: DILTIAZEM 25 MG INJ IV (13:30)
[2017-12-06] MEDS: VANCOMYCIN 1 GM (PMX) 250 ML IVPB (20:21)
[2017-12-06] MEDS: ENOXAPARIN 60 MG/0.6 ML SYG SC (20:25)
[2017-12-06] MEDS: DILTIAZEM 60 MG TAB PO (21:48)
[2017-12-07] MEDS: ALBUTEROL/IPRATROPIUM (NEB) 3 ML AMP HHN ×6 (00:05→21:30)
[2017-12-07] MEDS: METHYLPREDNISOLONE 125 MG INJ IV ×3 (00:14→12:18)
[2017-12-07] MEDS: PANTOPRAZOLE IV 80 MG in SOD CHLORIDE 0.9% 100 ML IV ×2 (01:12→12:18)
[2017-12-07] MEDS: AZTREONAM 1 GM/NS (PMX) 50 ML IVPB ×2 (05:09→14:17)
[2017-12-07] MEDS: DILTIAZEM 60 MG TAB PO ×3 (05:10→21:17)
[2017-12-07] MEDS: BALSAM PERU/CASTOR OIL 60 GM TUBE TOP (09:06)
[2017-12-07] MEDS: ASPIRIN 81 MG TAB PO (09:19)
[2017-12-07] MEDS: ENOXAPARIN 60 MG/0.6 ML SYG SC ×2 (09:20→21:18)
[2017-12-07] MEDS: ONDANSETRON 4 MG INJ IV (14:18)
[2017-12-07] MEDS: morphine 2 MG INJ IV (14:18)
[2017-12-07] MEDS: DILTIAZEM 25 MG INJ IV (14:19)
[2017-12-07] MEDS: METHYLPREDNISOLONE 40 MG INJ IV (21:17)
[2017-12-08] MEDS: ALBUTEROL/IPRATROPIUM (NEB) 3 ML AMP HHN ×7 (01:00→17:01)
[2017-12-08] MEDS: PANTOPRAZOLE (EC) 40 MG TAB PO (05:32)
[2017-12-08] MEDS: METHYLPREDNISOLONE 40 MG INJ IV (05:32)
[2017-12-08] MEDS: DILTIAZEM 60 MG TAB PO ×3 (05:33→21:08)
[2017-12-08 08:27] LABS: HEMOGLOBIN A1C 6.1 % (0-5.9)
[2017-12-08] MEDS: BALSAM PERU/CASTOR OIL 60 GM TUBE TOP (08:31)
[2017-12-08] MEDS: ASPIRIN 81 MG TAB PO (08:32)
[2017-12-08] MEDS: INFLUENZA VIRUS VACCINE 0.5 ML SYG IM* (08:33)
[2017-12-08] MEDS: ENOXAPARIN 60 MG/0.6 ML SYG SC ×2 (08:34→21:10)
[2017-12-08 08:35] LABS: ALANINE AMINOTRANSFERASE 108 IU/L (13-69); ALBUMIN 2.6 g/dl (3.3-4.9); ALBUMIN/GLOBULIN RATIO 0.89; ALKALINE PHOSPHATASE 60 IU/L (42-121); ANION GAP 9 (8-16); ASPARTATE AMINO TRANSFERASE 37 IU/L (15-46); BILIRUBIN,INDIRECT 0.3 mg/dl (0-1.1); BILIRUBIN,TOTAL 0.3 mg/dl (0.2-1.3); BLOOD UREA NITROGEN 46 mg/dl (7-20); CALCIUM 8.3 mg/dl (8.4-10.2); CARBON DIOXIDE 29 mmol/L (21-31); CHLORIDE 103 mmol/L (97-110); CREATININE 0.78 mg/dl (0.44-1.00); GLUCOSE 107 mg/dl (70-220); POTASSIUM 4.3 mmol/L (3.5-5.1); SODIUM 137 mmol/L (135-144); TOTAL PROTEIN 5.5 g/dl (6.1-8.1)
[2017-12-08 12:33] LABS: MAGNESIUM 2.2 mg/dl (1.7-2.5)
[2017-12-08] MEDS: DIGOXIN 0.125 MG TAB PO (13:07)
[2017-12-08] MEDS: morphine 2 MG INJ IV (22:46)
[2017-12-09] MEDS: ALBUTEROL/IPRATROPIUM (NEB) 3 ML AMP HHN ×6 (01:29→21:02)
[2017-12-09] MEDS: PANTOPRAZOLE (EC) 40 MG TAB PO (06:34)
[2017-12-09] MEDS: DILTIAZEM 60 MG TAB PO ×3 (06:35→20:53)
[2017-12-09 08:54] LABS: ADD MAN DIFF? NO
[2017-12-09 08:57] LABS: EOSINOPHILS % 0.1 % (0.0-7.0); HEMATOCRIT 33.8 % (37.0-47.0); HEMOGLOBIN 11.2 g/dl (12.0-16.0); LYMPHOCYTES # 0.8 10^3/ul (0.8-2.9); LYMPHOCYTES % 6.7 % (15.0-51.0); MEAN CORPUSCULAR HEMOGLOBIN 31.7 pg (29.0-33.0); MEAN CORPUSCULAR HGB CONC 33.1 g/dl (32.0-37.0); MEAN CORPUSCULAR VOLUME 95.8 fl (82.0-101.0); MEAN PLATELET VOLUME 11.4 fl (7.4-10.4); MONOCYTE # 0.6 10^3/ul (0.3-0.9); NEUTROPHIL # 10.5 10^3/ul (1.6-7.5); NEUTROPHILS % 87.4 % (39.0-77.0); PLATELET COUNT 206 10^3/UL (140-415); RED BLOOD COUNT 3.53 10^6/ul (4.20-5.40); RED CELL DISTRIBUTION WIDTH 16.4 % (11.5-14.5)
[2017-12-09] MEDS: ASPIRIN 81 MG TAB PO (09:19)
[2017-12-09] MEDS: predniSONE 10 MG TAB PO (09:19)
[2017-12-09] MEDS: BALSAM PERU/CASTOR OIL 60 GM TUBE TOP (09:19)
[2017-12-09] MEDS: ENOXAPARIN 60 MG/0.6 ML SYG SC ×2 (09:21→20:54)
[2017-12-09 09:29] LABS: MAGNESIUM 2.1 mg/dl (1.7-2.5)
[2017-12-09 09:29] LABS: PHOSPHORUS 2.5 mg/dl (2.5-4.9)
[2017-12-09 09:37] LABS: ALANINE AMINOTRANSFERASE 88 IU/L (13-69); ALBUMIN 2.6 g/dl (3.3-4.9); ALBUMIN/GLOBULIN RATIO 0.89; ALKALINE PHOSPHATASE 62 IU/L (42-121); ANION GAP 9 (8-16); ASPARTATE AMINO TRANSFERASE 38 IU/L (15-46); BILIRUBIN,INDIRECT 0.3 mg/dl (0-1.1); BILIRUBIN,TOTAL 0.3 mg/dl (0.2-1.3); BLOOD UREA NITROGEN 48 mg/dl (7-20); CALCIUM 8.4 mg/dl (8.4-10.2); CARBON DIOXIDE 31 mmol/L (21-31); CHLORIDE 102 mmol/L (97-110); GLUCOSE 91 mg/dl (70-220); POTASSIUM 4.7 mmol/L (3.5-5.1); SODIUM 137 mmol/L (135-144); TOTAL PROTEIN 5.5 g/dl (6.1-8.1)
[2017-12-09] MEDS: DIGOXIN 0.125 MG TAB PO (14:09)
[2017-12-09] MEDS ORDERED: POTASSIUM CHLORIDE (SR) 20 MEQ TAB PO (15:12)
[2017-12-09 17:10] LABS: AADO2 Arterial 47.9 mmHg (7.0-24.0); Allen Test ACCEPTAB; Arterial Base Excess 3.4 mmol/L (-3.0-3); Arterial Blood Gas Oxygen Sat 91.1 mmHG (95.0-98.0); Arterial COHb 0.2 % (0.0-3.0); Arterial Fraction of Oxyhgb 90.8 % (93.0-99.0); Arterial HCO3 26.9 mmol/L (22.0-26.0); Arterial MetHb 0.1 % (0.0-1.5); Arterial Total Hemglobin 12.1 g/dl (12.0-18.0); Arterial pCO2 37.1 mmhg (35-45); MODE ROOM AIR; Site Right Radial
[2017-12-10] MEDS: ALBUTEROL/IPRATROPIUM (NEB) 3 ML AMP HHN ×6 (00:57→20:01)
[2017-12-10] MEDS ORDERED: VITAMIN A & D 5 GM OINT PACKET TOP (01:31)
[2017-12-10] MEDS: DILTIAZEM 60 MG TAB PO ×3 (05:43→20:32)
[2017-12-10] MEDS: PANTOPRAZOLE (EC) 40 MG TAB PO (05:43)
[2017-12-10] MEDS: ENOXAPARIN 60 MG/0.6 ML SYG SC (08:56)
[2017-12-10] MEDS: predniSONE 10 MG TAB PO (08:56)
[2017-12-10] MEDS: BALSAM PERU/CASTOR OIL 60 GM TUBE TOP (08:57)
[2017-12-10 09:08] LABS: ADD MAN DIFF? NO
[2017-12-10 09:19] LABS: BASOPHILS % 0.1 % (0.0-2.0); HEMATOCRIT 29.1 % (37.0-47.0); HEMOGLOBIN 9.8 g/dl (12.0-16.0); LYMPHOCYTES # 0.9 10^3/ul (0.8-2.9); LYMPHOCYTES % 7.3 % (15.0-51.0); MEAN CORPUSCULAR HGB CONC 33.7 g/dl (32.0-37.0); MEAN CORPUSCULAR VOLUME 95.1 fl (82.0-101.0); MEAN PLATELET VOLUME 12.1 fl (7.4-10.4); MONOCYTE # 0.7 10^3/ul (0.3-0.9); MONOCYTES % 5.9 % (0.0-11.0); NEUTROPHIL # 10.4 10^3/ul (1.6-7.5); NEUTROPHILS % 85.5 % (39.0-77.0); PLATELET COUNT 196 10^3/UL (140-415); RED BLOOD COUNT 3.06 10^6/ul (4.20-5.40); RED CELL DISTRIBUTION WIDTH 16.8 % (11.5-14.5)
[2017-12-10 09:19] LABS: WHITE BLOOD COUNT 12.1 10^3/ul (4.8-10.8)
[2017-12-10 09:39] LABS: ALANINE AMINOTRANSFERASE 69 IU/L (13-69); ALBUMIN 2.5 g/dl (3.3-4.9); ALKALINE PHOSPHATASE 47 IU/L (42-121); ANION GAP 10 (8-16); ASPARTATE AMINO TRANSFERASE 30 IU/L (15-46); BILIRUBIN,INDIRECT 0.3 mg/dl (0-1.1); BILIRUBIN,TOTAL 0.3 mg/dl (0.2-1.3); BLOOD UREA NITROGEN 56 mg/dl (7-20); CALCIUM 7.9 mg/dl (8.4-10.2); CARBON DIOXIDE 28 mmol/L (21-31); CHLORIDE 104 mmol/L (97-110); CREATININE 0.58 mg/dl (0.44-1.00); GLUCOSE 90 mg/dl (70-220); POTASSIUM 5.2 mmol/L (3.5-5.1); SODIUM 137 mmol/L (135-144)
[2017-12-10 09:41] LABS: PHOSPHORUS 2.6 mg/dl (2.5-4.9)
[2017-12-10 09:41] LABS: MAGNESIUM 2.1 mg/dl (1.7-2.5)
[2017-12-10] MEDS: DIGOXIN 0.125 MG TAB PO (14:07)
[2017-12-10] MEDS: DILTIAZEM 25 MG INJ IV (15:56)
[2017-12-10] MEDS: APIXABAN 5 MG TABLET PO (20:32)
[2017-12-11] MEDS: ALBUTEROL/IPRATROPIUM (NEB) 3 ML AMP HHN ×4 (00:13→12:49)
[2017-12-11] MEDS: PANTOPRAZOLE (EC) 40 MG TAB PO (05:44)
[2017-12-11] MEDS: DILTIAZEM 60 MG TAB PO ×2 (05:44→13:09)
[2017-12-11 07:40] LABS: ADD MAN DIFF? NO
[2017-12-11 07:53] LABS: WHITE BLOOD COUNT 12.5 10^3/ul (4.8-10.8)
[2017-12-11 07:53] LABS: BASOPHILS % 0.2 % (0.0-2.0); EOSINOPHILS # 0.1 10^3/ul (0.0-0.5); EOSINOPHILS % 0.4 % (0.0-7.0); HEMATOCRIT 26.4 % (37.0-47.0); HEMOGLOBIN 9.1 g/dl (12.0-16.0); LYMPHOCYTES # 1.2 10^3/ul (0.8-2.9); LYMPHOCYTES % 9.9 % (15.0-51.0); MEAN CORPUSCULAR HEMOGLOBIN 32.3 pg (29.0-33.0); MEAN CORPUSCULAR HGB CONC 34.5 g/dl (32.0-37.0); MEAN CORPUSCULAR VOLUME 93.6 fl (82.0-101.0); MEAN PLATELET VOLUME 11.2 fl (7.4-10.4); MONOCYTE # 0.7 10^3/ul (0.3-0.9); MONOCYTES % 5.3 % (0.0-11.0); NEUTROPHIL # 10.3 10^3/ul (1.6-7.5); NEUTROPHILS % 82.1 % (39.0-77.0); NUCLEATED RED BLOOD CELLS% 0.2 /100WBC (0.0-0.0); PLATELET COUNT 212 10^3/UL (140-415); RED BLOOD COUNT 2.82 10^6/ul (4.20-5.40); RED CELL DISTRIBUTION WIDTH 16.8 % (11.5-14.5)
[2017-12-11 08:18] LABS: ANION GAP 8 (8-16); BLOOD UREA NITROGEN 33 mg/dl (7-20); CALCIUM 8.1 mg/dl (8.4-10.2); CARBON DIOXIDE 29 mmol/L (21-31); CHLORIDE 105 mmol/L (97-110); CREATININE 0.63 mg/dl (0.44-1.00); GLUCOSE 85 mg/dl (70-220); POTASSIUM 4.8 mmol/L (3.5-5.1); SODIUM 137 mmol/L (135-144)
[2017-12-11] MEDS: predniSONE 10 MG TAB PO (08:41)
[2017-12-11] MEDS: BALSAM PERU/CASTOR OIL 60 GM TUBE TOP (08:41)
[2017-12-11] MEDS: APIXABAN 5 MG TABLET PO (08:41)
[2017-12-11 09:21] LABS: PHOSPHORUS 3.1 mg/dl (2.5-4.9)
[2017-12-11] MEDS: DIGOXIN 0.125 MG TAB PO (13:10)
== END 2017-12-11 15:30 | disposition home or self-care (01) | DRG 871 ==
LOC: MS4 12-04 16:56 → E/R 15:28 → ICU 17:35
PROC: 5A1945Z Respiratory Ventilation, 24-96 Consecutive Hours (ICD-10-PCS; principal; 2017-11-29)
PROC: 0BH17EZ Insertion of Endotracheal Airway into Trachea, Via Natural or Artificial Opening (ICD-10-PCS; 2017-11-29)
DX: A41.9 Sepsis, unspecified organism (principal); I21.A1 Myocardial infarction type 2; G92 Toxic encephalopathy; J18.9 Pneumonia, unspecified organism; I50.33 Acute on chronic diastolic (congestive) heart failure; N17.9 Acute kidney failure, unspecified; J96.02 Acute respiratory failure with hypercapnia; J96.01 Acute respiratory failure with hypoxia; D68.9 Coagulation defect, unspecified; J44.1 Chronic obstructive pulmonary disease with (acute) exacerbation; E87.0 Hyperosmolality and hypernatremia; I27.20 Pulmonary hypertension, unspecified; I48.91 Unspecified atrial fibrillation; R65.20 Severe sepsis without septic shock; I25.10 Atherosclerotic heart disease of native coronary artery without angina pectoris; Z95.1 Presence of aortocoronary bypass graft; E87.6 Hypokalemia; D64.9 Anemia, unspecified; I35.0 Nonrheumatic aortic (valve) stenosis; F17.200 Nicotine dependence, unspecified, uncomplicated; R74.0 Nonspecific elevation of levels of transaminase and lactic acid dehydrogenase [LDH]; Z74.09 Other reduced mobility
CPT/HCPCS: 31500; 36415; 36600; 71010; 71045; 74176; 76775; 80048; 80053; 80061; 80076; 80202; 81001; 82150; 82550; 82553; 82728; 82787; 82803; 83036; 83540; 83605; 83690; 83735; 83880; 84100; 84132; 84443; 84484; 85014; 85018; 85025; 85610; 85730; 86038; 86255; 86704; 86706; 86709; 86803; 87040; 87070; 87081; 87086; 87340; 87400; 90686; 92526; 92610; 93005; 93306; 94002; 94003; 94640; 94644; 94660; 94770; 96372; 96374; 96375; 96376; 97110; 97162; 97530; 99291-25